=== PATIENT | female | born 1975 | race Caucasian/White ===

== ENCOUNTER 2017-03-01 17:07 | Emergency (ER) | payer BC, OTHER ==
[~2017-03-01] VITALS: Ht 152.4 cm; Wt 102.0 kg
[2017-03-01 17:14] VITALS: Ht 152.4 cm; Wt 102.0 kg
[2017-03-01] MEDS ORDERED: KETOROLAC 30 MG INJ IM STA (18:06)
[2017-03-01] MEDS ORDERED: DEXAMETHASONE 10 MG/ML 1 ML INJ IM ONE (18:30)
[2017-03-01] MEDS ORDERED: NAPR-260 PO (18:48)
[2017-03-01 19:18] VITALS: BP 129/85; PULSE 79; RESP 18; TEMP 98.1
--- NOTE | 2017-03-01 20:38 | ERD ---
ER Documentation Chief Complaint Date/Time DATE: 03/01/17 TIME: 20:36 Chief Complaint BACK PAIN X 2 DAYS HPI This patient is a 41-year-old female with history of sciatica presenting to the emergency room with complaints of left-sided back pain which began 2 days ago after bending over at work. Symptoms are constant and radiated down her left leg. Symptoms are better with rest and worsened with movement. She denies loss of bowel or bladder function, fevers, chills, or other symptoms currently. ROS All systems reviewed and are negative except as per history of present illness. Medications Home Meds Active Scripts Naproxen* (Naprosyn*) 500 Mg Tablet, 500 MG PO BID Y for PAIN AND/OR INFLAMMATION, #30 TAB Prov:GERMÁN BALLESTEROS PA-C 03/01/17 Allergies Allergies: Coded Allergies: No Known Allergy (Unverified , 03/01/17) PMhx/Soc History of Surgery: Yes (appy, rosie) Anesthesia Reaction: No Hx Neurological Disorder: No Hx Respiratory Disorders: No Hx Cardiac Disorders: No Hx Psychiatric Problems: No Hx Miscellaneous Medical Probl: Yes (DM, psoriasis) Hx Alcohol Use: No Hx Substance Use: No Hx Tobacco Use: No Smoking Status: Never smoker Physical Exam Vitals Vital Signs Date Time Temp Pulse Resp B/P Pulse Ox O2 Delivery O2 Flow Rate FiO2 03/01/17 19:18 98.1 79 18 129/85 96 Room Air 03/01/17 17:14 98.1 87 18 140/87 99 Physical Exam Const: Nontoxic, well-appearing female in no acute distress. Head: Atraumatic Eyes: Normal Conjunctiva ENT: Normal External Ears, Nose and Mouth. Neck: Full range of motion..~ No meningismus. Resp: No signs of acute respiratory distress. No retractions. Skin: No petechiae or rashes Back: No midline or flank tenderness. There is tenderness to palpation of the left paraspinal muscles of the lumbar spine. Negative straight leg raise bilaterally. Ext: No cyanosis, or edema Neur: Awake and alert Psych: Normal Mood and Affect Results 24 hrs Current Medications Medications (Trade) Dose Ordered Sig/Heriberto Route PRN Reason Start Time Stop Time Status Last Admin Dose Admin Dexamethasone (Decadron) 10 mg ONCE ONCE IM 03/01/17 18:30 03/01/17 18:31 DC 03/01/17 18:36 Ketorolac Tromethamine (Toradol) 30 mg ONCE STAT IM 03/01/17 18:06 03/01/17 18:07 DC 03/01/17 18:35 Procedures/MDM 41-year-old female presenting for sciatica exacerbation on the left side. History and physical examination is consistent with uncomplicated sciatica. I have low suspicion for cauda equina, epidural abscess, or other emergent conditions. The patient was feeling improved after treatment in the department. She was given prescription for naproxen for treatment at home. She is to return immediately for any new or worsening symptoms. Close follow- up with primary care physician was advised. Departure Diagnosis: Primary Impression: Back pain with sciatica Condition: Fair Patient Instructions: Back Pain W/ Sciatica Referrals: [facility] YOU HAVE RECEIVED A MEDICAL SCREENING EXAM AND THE RESULTS INDICATE THAT YOU DO NOT HAVE A CONDITION THAT REQUIRES URGENT TREATMENT IN THE EMERGENCY DEPARTMENT. FURTHER EVALUATION AND TREATMENT OF YOUR CONDITION CAN WAIT UNTIL YOU ARE SEEN IN YOUR DOCTORS OFFICE WITHIN THE NEXT 1-2 DAYS. IT IS YOUR RESPONSIBILITY TO MAKE AN APPOINTMENT FOR FOLOW-UP CARE. IF YOU HAVE A PRIMARY DOCTOR --you should call your primary doctor and schedule an appointment IF YOU DO NOT HAVE A PRIMARY DOCTOR YOU CAN CALL OUR PHYSICIAN REFERRAL HOTLINE AT IF YOU CAN NOT AFFORD TO SEE A PHYSICIAN YOU CAN CHOSE FROM THE FOLLOWING [facility] [address] [facility]. [facility] [address] [facility] [facility] [address] [facility] [facility] [address] [facility]. [facility] [address] [facility]. [facility] [address] Additional Instructions: Follow up with your PCP within the next 1-3 days for a repeat evaluation. If you require a referral to a specialist, your Primary Care Provider may be able to provide this for you. In most patient cases, a referral is not required. If you have further questions regarding this matter, please ask your Primary Care Provider. Return the the emergency department immediately if symptoms worsen or change. If you have any questions regarding medications, ask your pharmacist or us before you leave. If any adverse reactions, occur while taking your medications, discontinue the treatment and return to the emergency department immediately. If any new or worsening symptoms, uncontrolled fevers, or other unexplained symptoms occur, return to the emergency department immediately. Take your medications as directed, and complete the entire course of treatment. GERMÁN BALLESTEROS PA-C Mar 01, 2017 20:38
== END 2017-03-01 19:20 | disposition home or self-care (01) ==
LOC: FTE 17:07
DX: M54.42 Lumbago with sciatica, left side (principal); E11.9 Type 2 diabetes mellitus without complications
CPT/HCPCS: 96372; J1100; J1885; Z7502